=== PATIENT | female | born 1975 | race Caucasian/White ===

== ENCOUNTER 2016-09-15 10:07 | Outpatient (CLI) ==
[2014-03-02 09:28] VITALS: BMI 35.9
[2016-09-15 10:51] LABS: PROTHROMBIN TIME 20.1 SEC (9.3-11.0)
== END 2016-09-15 10:08 | disposition home or self-care (01) ==
LOC: LAB 10:07
PROVIDERS: ATTEND Nurse Practitioner Family
DX: Z51.81 Encounter for therapeutic drug level monitoring (principal); Z79.01 Long term (current) use of anticoagulants
CPT/HCPCS: 36415; 85610

== ENCOUNTER 2016-09-19 09:24 | Outpatient (CLI) ==
[2014-03-02 09:28] VITALS: BMI 35.9
[2016-09-19 09:55] LABS: PROTHROMBIN TIME 24.5 SEC (9.3-11.0)
== END 2016-09-19 09:25 | disposition home or self-care (01) ==
LOC: LAB 09:24
PROVIDERS: ATTEND Psychiatry & Neurology Neurology
DX: Z51.81 Encounter for therapeutic drug level monitoring (principal); Z79.01 Long term (current) use of anticoagulants; I67.6 Nonpyogenic thrombosis of intracranial venous system
CPT/HCPCS: 36415; 85610

== ENCOUNTER 2016-09-22 10:28 | Outpatient (CLI) ==
[2014-03-02 09:28] VITALS: BMI 35.9
[2016-09-22 10:54] LABS: PROTHROMBIN TIME 35.1 SEC (9.3-11.0)
== END 2016-09-22 10:29 | disposition home or self-care (01) ==
LOC: LAB 10:28
PROVIDERS: ATTEND Psychiatry & Neurology Neurology
DX: Z51.81 Encounter for therapeutic drug level monitoring (principal); Z79.01 Long term (current) use of anticoagulants; I67.6 Nonpyogenic thrombosis of intracranial venous system
CPT/HCPCS: 36415; 85610

== ENCOUNTER 2016-09-26 09:52 | Outpatient (CLI) ==
[2014-03-02 09:28] VITALS: BMI 35.9
[2016-09-26 10:14] LABS: PROTHROMBIN TIME 21.7 SEC (9.3-11.0)
== END 2016-09-26 09:53 | disposition home or self-care (01) ==
LOC: LAB 09:52
PROVIDERS: ATTEND Psychiatry & Neurology Neurology
DX: Z51.81 Encounter for therapeutic drug level monitoring (principal); Z79.01 Long term (current) use of anticoagulants; I67.6 Nonpyogenic thrombosis of intracranial venous system
CPT/HCPCS: 36415; 85610

== ENCOUNTER 2016-09-29 09:31 | Outpatient (CLI) ==
[2014-03-02 09:28] VITALS: BMI 35.9
[2016-09-29 10:25] LABS: PROTHROMBIN TIME 20.3 SEC (9.3-11.0)
== END 2016-09-29 09:32 | disposition home or self-care (01) ==
LOC: LAB 09:31
PROVIDERS: ATTEND Psychiatry & Neurology Neurology
DX: Z51.81 Encounter for therapeutic drug level monitoring (principal); Z79.01 Long term (current) use of anticoagulants; I67.6 Nonpyogenic thrombosis of intracranial venous system
CPT/HCPCS: 36415; 85610

== ENCOUNTER 2016-10-03 10:40 | Outpatient (CLI) ==
[2014-03-02 09:28] VITALS: BMI 35.9
[2016-10-03 11:05] LABS: PROTHROMBIN TIME 24.7 SEC (9.3-11.0)
== END 2016-10-03 10:41 | disposition home or self-care (01) ==
LOC: LAB 10:40
PROVIDERS: ATTEND Psychiatry & Neurology Neurology
DX: Z51.81 Encounter for therapeutic drug level monitoring (principal); Z79.01 Long term (current) use of anticoagulants; I67.6 Nonpyogenic thrombosis of intracranial venous system
CPT/HCPCS: 36415; 85610

== ENCOUNTER 2016-10-06 10:11 | Outpatient (CLI) ==
[2014-03-02 09:28] VITALS: BMI 35.9
[2016-10-06 10:38] LABS: PROTHROMBIN TIME 20.8 SEC (9.3-11.0)
== END 2016-10-06 10:12 | disposition home or self-care (01) ==
LOC: LAB 10:11
PROVIDERS: ATTEND Psychiatry & Neurology Neurology
DX: Z51.81 Encounter for therapeutic drug level monitoring (principal); Z79.01 Long term (current) use of anticoagulants; I67.6 Nonpyogenic thrombosis of intracranial venous system
CPT/HCPCS: 36415; 85610

== ENCOUNTER 2016-10-12 10:06 | Outpatient (CLI) ==
[2014-03-02 09:28] VITALS: BMI 35.9
[2016-10-12 10:44] LABS: PROTHROMBIN TIME 22.8 SEC (9.3-11.0)
== END 2016-10-12 10:07 | disposition home or self-care (01) ==
LOC: LAB 10:06
PROVIDERS: ATTEND Nurse Practitioner Family
DX: Z51.81 Encounter for therapeutic drug level monitoring (principal); Z79.01 Long term (current) use of anticoagulants
CPT/HCPCS: 36415; 85610

== ENCOUNTER 2016-10-19 09:40 | Outpatient (CLI) ==
[2014-03-02 09:28] VITALS: BMI 35.9
[2016-10-19 10:37] LABS: PROTHROMBIN TIME 17.8 SEC (9.3-11.0)
== END 2016-10-19 09:41 | disposition home or self-care (01) ==
LOC: LAB 09:40
PROVIDERS: ATTEND Nurse Practitioner Family
DX: Z51.81 Encounter for therapeutic drug level monitoring (principal); Z79.01 Long term (current) use of anticoagulants; I67.6 Nonpyogenic thrombosis of intracranial venous system
CPT/HCPCS: 36415; 85610

== ENCOUNTER 2016-10-26 10:12 | Outpatient (CLI) ==
[2014-03-02 09:28] VITALS: BMI 35.9
[2016-10-26 10:45] LABS: PROTHROMBIN TIME 20.1 SEC (9.3-11.0)
== END 2016-10-26 10:13 | disposition home or self-care (01) ==
LOC: LAB 10:12
PROVIDERS: ATTEND Nurse Practitioner Family
DX: Z51.81 Encounter for therapeutic drug level monitoring (principal); Z79.01 Long term (current) use of anticoagulants
CPT/HCPCS: 36415; 85610

== ENCOUNTER 2016-11-02 09:45 | Outpatient (CLI) ==
[2014-03-02 09:28] VITALS: BMI 35.9
[2016-11-02 10:33] LABS: PROTHROMBIN TIME 20.7 SEC (9.3-11.0)
== END 2016-11-02 09:46 | disposition home or self-care (01) ==
LOC: LAB 09:45
PROVIDERS: ATTEND Nurse Practitioner Family
DX: Z51.81 Encounter for therapeutic drug level monitoring (principal); Z79.01 Long term (current) use of anticoagulants
CPT/HCPCS: 36415; 85610

== ENCOUNTER 2016-11-16 09:58 | Outpatient (CLI) ==
[2014-03-02 09:28] VITALS: BMI 35.9
[2016-11-16 10:23] LABS: PROTHROMBIN TIME 23.1 SEC (9.3-11.0)
== END 2016-11-16 09:59 | disposition home or self-care (01) ==
LOC: LAB 09:58
PROVIDERS: ATTEND Nurse Practitioner Family
DX: Z51.81 Encounter for therapeutic drug level monitoring (principal); Z79.01 Long term (current) use of anticoagulants
CPT/HCPCS: 36415; 85610

== ENCOUNTER 2016-11-30 09:43 | Outpatient (CLI) ==
[2014-03-02 09:28] VITALS: BMI 35.9
[2016-11-30 10:24] LABS: PROTHROMBIN TIME 16.8 SEC (9.3-11.0)
== END 2016-11-30 09:44 | disposition home or self-care (01) ==
LOC: LAB 09:43
PROVIDERS: ATTEND Nurse Practitioner Family
DX: Z51.81 Encounter for therapeutic drug level monitoring (principal); Z79.01 Long term (current) use of anticoagulants
CPT/HCPCS: 36415; 85610

== ENCOUNTER 2016-12-07 10:23 | Outpatient (CLI) ==
[2014-03-02 09:28] VITALS: BMI 35.9
[2016-12-07 10:46] LABS: PROTHROMBIN TIME 25.4 SEC (9.3-11.0)
== END 2016-12-07 10:24 | disposition home or self-care (01) ==
LOC: LAB 10:23
PROVIDERS: ATTEND Nurse Practitioner Family
DX: Z51.81 Encounter for therapeutic drug level monitoring (principal); Z79.01 Long term (current) use of anticoagulants
CPT/HCPCS: 36415; 85610

== ENCOUNTER 2016-12-22 09:42 | Outpatient (CLI) ==
[2014-03-02 09:28] VITALS: BMI 35.9
[2016-12-22 10:12] LABS: PROTHROMBIN TIME 27.5 SEC (9.3-11.0)
== END 2016-12-22 09:43 | disposition home or self-care (01) ==
LOC: LAB 09:42
PROVIDERS: ATTEND Nurse Practitioner Family
DX: Z51.81 Encounter for therapeutic drug level monitoring (principal); Z79.01 Long term (current) use of anticoagulants
CPT/HCPCS: 36415; 85610

== ENCOUNTER 2017-01-18 09:57 | Outpatient (CLI) ==
[2014-03-02 09:28] VITALS: BMI 35.9
[2017-01-18 10:59] LABS: PROTHROMBIN TIME 17.8 SEC (9.3-11.0)
== END 2017-01-18 09:58 | disposition home or self-care (01) ==
LOC: LAB 09:57
PROVIDERS: ATTEND Nurse Practitioner Family
DX: Z51.81 Encounter for therapeutic drug level monitoring (principal); Z79.01 Long term (current) use of anticoagulants; I67.6 Nonpyogenic thrombosis of intracranial venous system
CPT/HCPCS: 36415; 85610

== ENCOUNTER 2017-02-01 09:16 | Outpatient (CLI) ==
[2014-03-02 09:28] VITALS: BMI 35.9
== END 2017-02-01 09:17 | disposition home or self-care (01) ==
LOC: LAB 09:16
PROVIDERS: ATTEND Nurse Practitioner Family
DX: Z51.81 Encounter for therapeutic drug level monitoring (principal); Z79.01 Long term (current) use of anticoagulants; I67.6 Nonpyogenic thrombosis of intracranial venous system
CPT/HCPCS: 36415; 85610

== ENCOUNTER 2017-03-15 09:10 | Outpatient (CLI) ==
[2014-03-02 09:28] VITALS: BMI 35.9
[2017-03-15 11:19] LABS: PROTHROMBIN TIME 14.3 SEC (9.3-11.0)
== END 2017-03-15 09:11 | disposition home or self-care (01) ==
LOC: LAB 09:10
PROVIDERS: ATTEND Psychiatry & Neurology Neurology
DX: Z51.81 Encounter for therapeutic drug level monitoring (principal); Z79.01 Long term (current) use of anticoagulants; I67.6 Nonpyogenic thrombosis of intracranial venous system
CPT/HCPCS: 36415; 85610

== ENCOUNTER 2017-03-21 10:43 | Outpatient (CLI) ==
[2014-03-02 09:28] VITALS: BMI 35.9
[2017-03-21 11:18] LABS: PROTHROMBIN TIME 26.9 SEC (9.3-11.0)
== END 2017-03-21 10:44 | disposition home or self-care (01) ==
LOC: LAB 10:43
PROVIDERS: ATTEND Psychiatry & Neurology Neurology
DX: Z51.81 Encounter for therapeutic drug level monitoring (principal); Z79.01 Long term (current) use of anticoagulants; I67.6 Nonpyogenic thrombosis of intracranial venous system
CPT/HCPCS: 36415; 85610

== ENCOUNTER 2017-04-04 11:23 | Outpatient (CLI) ==
[2014-03-02 09:28] VITALS: BMI 35.9
[2017-04-04 12:27] LABS: PROTHROMBIN TIME 24.8 SEC (9.3-11.0)
== END 2017-04-04 11:24 | disposition home or self-care (01) ==
LOC: LAB 11:23
PROVIDERS: ATTEND Psychiatry & Neurology Neurology
DX: Z51.81 Encounter for therapeutic drug level monitoring (principal); Z79.01 Long term (current) use of anticoagulants; I67.6 Nonpyogenic thrombosis of intracranial venous system
CPT/HCPCS: 36415; 85610

== ENCOUNTER 2017-05-03 08:30 | Outpatient (CLI) ==
[2014-03-02 09:28] VITALS: BMI 35.9
[2017-05-03 08:59] LABS: PROTHROMBIN TIME 27.8 SEC (9.3-11.0)
== END 2017-05-03 08:31 | disposition home or self-care (01) ==
LOC: LAB 08:30
PROVIDERS: ATTEND Psychiatry & Neurology Neurology
DX: Z51.81 Encounter for therapeutic drug level monitoring (principal); Z79.01 Long term (current) use of anticoagulants; I67.6 Nonpyogenic thrombosis of intracranial venous system
CPT/HCPCS: 36415; 85610

== ENCOUNTER 2017-06-13 12:52 | Outpatient (CLI) ==
[2014-03-02 09:28] VITALS: BMI 35.9
== END 2017-06-13 12:53 | disposition home or self-care (01) ==
LOC: LAB 12:52
PROVIDERS: ATTEND Psychiatry & Neurology Neurology
DX: Z51.81 Encounter for therapeutic drug level monitoring (principal); Z79.01 Long term (current) use of anticoagulants; I67.6 Nonpyogenic thrombosis of intracranial venous system
CPT/HCPCS: 36415; 85610

== ENCOUNTER 2017-06-19 16:25 | Outpatient (CLI) ==
[2014-03-02 09:28] VITALS: BMI 35.9
== END 2017-06-19 16:26 | disposition home or self-care (01) ==
LOC: LAB 16:25
PROVIDERS: ATTEND Nurse Practitioner Family
DX: J02.9 Acute pharyngitis, unspecified (principal)
CPT/HCPCS: 87651

== ENCOUNTER 2017-07-11 11:38 | Outpatient (CLI) ==
[2014-03-02 09:28] VITALS: BMI 35.9
== END 2017-07-11 11:39 | disposition home or self-care (01) ==
LOC: LAB 11:38
PROVIDERS: ATTEND Psychiatry & Neurology Neurology
DX: R51 Headache (principal)
CPT/HCPCS: 36415; 80053; 85025; 85610

== ENCOUNTER 2017-08-01 11:59 | Outpatient (CLI) ==
[2014-03-02 09:28] VITALS: BMI 35.9
--- NOTE | 2017-08-01 13:08 | DI ---
EXAM: Five views of the lumbar spine HISTORY: Lumbar radiculopathy TECHNIQUE: AP, oblique and lateral and coned-down lateral views of the lumbar spine were obtained. FINDINGS: The alignment is normal. There is no evidence of compression fracture. There is no pars defect. There is mild degenerative disc disease and lumbar spondylosis seen at L3-L4 and at L1-L2. The intervertebral discs demonstrate normal height. IMPRESSION: There is no spondylolisthesis. Mild degenerative disc disease seen within the lumbar spine as described above.
== END 2017-08-01 12:00 | disposition home or self-care (01) ==
LOC: RAD 11:59
PROVIDERS: ATTEND Nurse Practitioner Family
DX: M54.17 Radiculopathy, lumbosacral region (principal); M53.3 Sacrococcygeal disorders, not elsewhere classified

== ENCOUNTER 2017-08-15 11:00 | Outpatient (RCR) ==
[2014-03-02 09:28] VITALS: BMI 35.9
--- NOTE | 2017-08-09 13:08 | RS.OPPTEV2 ---
Date of Note: 08/08/17 Visit #: 1 Date of Evaluation: 08/08/17 Payer Source: Insurance Treatment Diagnosis: Low back pain History of Condition/Mechanism of Injury:: Patient reports having this back pain for a few months. Denies any injury. Prior Level of Function.....Patient was independent with: ADL's, Self Care, Work /Vocation, Caregiving, Ambulation/Mobility, Community Integration/Access Functional Limitations: Sleep, ADL's, Reaching, Pushing, Pulling, Lifting, Carrying, Sitting, Standing, Bending, Squatting, Ambulation, Community Access/ Integration Current Subjective/complaints:: Patient reports left low back pain. States at times the pain goes into the left buttock area. States sitting or standing for very long bothers her. Reports bending bothers her more than anything. She does not sleep well due to her back and her bladder. She currently has kidney stones in both kidneys that are too large to pass. She is unable to take anything for pain other than Tylenol. States she usually sleeps in a position that is partly sidelying and prone. She has been on Warfarin since having her brain surgery and states she has gained 50 lbs. She is very limited on what she can eat due to being on Warfarin. She has been off work for approximately three weeks. She works at [employer], which requires frequent bending, lifting, reaching. States her back feels a little bit better since not being at work, but it still bothers her. Medical History Surgical History Comments:: Brain surgery for clot removal one year ago. Smoking Status: Never smoker Diagnostic Testing/Imaging:: Xrays of lumbar spine on 08/01/17 reveal: Impression: "There is no spondylolisthesis.". Findings also note mild degenerative disc disease and lumbar spondylosis at L3-L4 and L1-L2. Intervertebral discs demonstrate normal height. Hx Home Medications: Warfarin, Flexeril PRN, Tylenol PRN, Steriod pack (just finished) Patient's Goals: Her goal is to get relief of low back pain. Pain Assessment - Pain Description Pain Location: Left low back Current Pain Intensity: 6/10 Worst Pain Intensity: 10/10 Functional Outcome Measure Oswestry LBP: 52 - G Codes & Severity Modifier G Codes & Modifier: NA Source of G Code score: NA Observation - Observation Posture: Forward Head, Rounded Shoulders Gait - Gait Pattern General Gait Pattern Observation: No Deviations/Normal - ROM Lumbar Flexion: Hand reach to patellae (with decreased lumbar mobility.) Sidebending to Left: Reach to Lateral Joint Line Sidebending to Right: Reach to Lateral Joint Line Comments: Reports increased pain into left buttock region with lumbar flexion. Extension is uncomfortable, but discomfort is just at lumbar spine. Bilateral LE ROM is WFL's. - Strength Trunk Rotation: 4+ Good + Comments: 5/5 throughout bilateral LE's. - Special Tests SARAVANAN Test: Negative Left, Negative Right SLR Test: Negative Right, Positive Left (pain radiates to left knee) Seated Dural Stretch Test: Negative Right, Positive Left SI Joint Compression: Negative Palpation Comments:: Patient reports tenderness along the left lumbosacral region, over the left SI joint, and over the gluteus medius, hannah, and piriformis. Minimal to moderate muscle guarding at the left lumbar paraspinals. Sensation - Sensation Right Lower Extremity: Intact/Normal Left Lower Extremity: Intact/Normal Additional Comments: Additional Comments: SLR bilaterally to 50 degrees in supine. - Treatment Modality: Ultrasound Parameters/Method Applied: 1.5 W/cm2 continuous X 10 mins to left lumbosacral region. Patient Position: Left Sidelying Interventions - Exercise/Activities/Manual Therapy Exercises/Activities: None given today. Manual Therapy: NA - Charges Timed Code Treatment Minutes: 10 Total Treatment Time: 55 mins Procedures billed for this date of service:: Geraldo Carl, EVALUATION COMPLEXITY LEVEL EVALUATION COMPLEXITY LEVEL: HISTORY: Medium (HX brain surgery, gain of 50 lbs ) , EXAM OF BODY SYSTEMS: Medium, CLINICAL PRESENTATION: Low, CLINICAL DECISION MAKING: Low Assessment Assessment: Patient presents to therapy with a diagnosis of Lumbar degenerative disc disease. She reports primarily left low back pain, with pain radiating into the left buttock. During the evaluation, she demonstrates symptoms of lumbar disc involvement, as Supine and seated SLR on the left reproduced pain. Lumbar flexion also caused reproduction of pain, whereas extension did not. She exhibits tenderness and muscle guarding along the left lumbosacral region. She should benefit from modalities and exercises to reduce tenderness, muscle guarding, and decrease her pain. Patient Education: Education of diagnosis, Body/Joint mechanics, Activity Modification, Education of Plan of Care Rehab Potential: Good Short Term Goals Goal #1: Patient independent and compliant with HEP. Goal to be met by: 08/19/17 Goal #2: Left radiating pain localized to lumbar spine. Goal to be met by: 08/19/17 Goal #3: Tenderness at left lumbosacral region decreased to minimal. Goal to be met by: 08/19/17 Intermediate Goals Goal #1: Pt knows HEP and to continue ex's to maintain level of function at D/C. Goal to be met by: 09/08/17 Goal #2: Score on Oswestry LBP scale improved to 28. Goal to be met by: 09/08/17 Goal #3: Pt able to perform all daily activities with minimal low back pain. Goal to be met by: 09/08/17 Goal #4: Pt to demo. good understanding of back safety and proper body mechanics. Goal to be met by: 09/08/17 Plan - Treatment to be Provided Procedures: Therapeutic Exercises, Therapeutic Activity, Patient Education ( Back safety/body mechanics) Modalities: Electrical Stimulation, Ultrasound/Phonophoresis, Cryotherapy, Hot Packs - Treatment Plan Frequency: 3 X week Duration: 3 weeks ORDER # VISITS AND/OR THROUGH DATE: 09/08/17 - Treatment Code (1) Low back pain Code(s): M54.5 - LOW BACK PAIN Qualifiers: Chronicity: acute Back pain laterality: left Sciatica presence: unspecified whether sciatica present Qualified Code(s): M54.5 - Low back pain (2) Lumbar degenerative disc disease Code(s): M51.36 - OTHER INTERVERTEBRAL DISC DEGENERATION, LUMBAR REGION Comments: M51.36
--- NOTE | 2017-08-10 15:18 | RS.OPPTDN ---
Subjective Date of Note: 08/10/17 Visit #: 2 Date of Evaluation: 08/08/17 Payer Source: Insurance Treatment Diagnosis: Low back pain Current Subjective/complaints:: Patient reports pain in the lumbar region is not as bad today. States she has been off of work and has been resting. Pain Assessment - Pain Description Pain Location: Lowback and left gluteal region Current Pain Intensity: 5/10 - Treatment Modality: Electrical Stim Unattended Parameters/Method Applied: [id number] HVGC to 145p.v. with 4 large pads cross current to the lumbar paraspinals and S-I region with HP prior to EX. Patient Position: Supine - Heat/Cryotherapy Treatment: Hot Pack (with Estim ) Interventions - Exercise/Activities/Manual Therapy Exercises/Activities: Asssited stretching of bilateral HS, pirifromis, and SKTC. Prone for ELIZABETH, modified press-ups, alt hip extension, and upper body lifts with scap retraction. Patient assisted back to supine for isometric hip extension 2s/5reps each side. Reveiwed body mechanics with daily activities and with getting in/out of car and truck. Total minutes of Exercise: 15mins Manual Therapy: NA HOME EXERCISE PROGRAM: ELIZABETH, mod press-ups, upper body lifts, and hip extension, all in prone. Isometric hip extensions. - Charges Timed Code Treatment Minutes: 15mins Total Treatment Time: 40mins Procedures billed for this date of service:: HP, Estim unattended, EX Assessment: Patient attentive to patient education and seems motivated to work on HEP. Patient Education: Education of diagnosis, Body/Joint mechanics, Home Exercise Program, Home Safety, Activity Modification Patient demonstrates compliance with HEP?: Yes Short Term Goals Goal #1: Patient independent and compliant with HEP. Goal to be met by: 08/19/17 Progress towards Goal:: Progressing Goal #2: Left radiating pain localized to lumbar spine. Goal to be met by: 08/19/17 Goal #3: Tenderness at left lumbosacral region decreased to minimal. Goal to be met by: 08/19/17 Custodial Goals Goal #1: Pt knows HEP and to continue ex's to maintain level of function at D/C. Goal to be met by: 09/08/17 Goal #2: Score on Oswestry LBP scale improved to 28. Goal to be met by: 09/08/17 Goal #3: Pt able to perform all daily activities with minimal low back pain. Goal to be met by: 09/08/17 Goal #4: Pt to demo. good understanding of back safety and proper body mechanics. Goal to be met by: 09/08/17 Plan PLAN OF CARE EXPIRES ON:: 09/08/17 ORDER # VISITS AND/OR THROUGH DATE: 09/08/17 PLAN: Continue modalities and progress exercise to reduce pain and increase functional activity level.
--- NOTE | 2017-08-14 13:27 | RS.CXNS ---
Date of scheduled appointment: 08/14/17 Type: Rescheduled (Patient calls to cancel todays appointment and reschedules for tomorrow.)
--- NOTE | 2017-08-15 12:10 | RS.OPPTDN ---
Subjective Date of Note: 08/15/17 Visit #: 3 Date of Evaluation: 08/08/17 Payer Source: Insurance Treatment Diagnosis: Low back pain Current Subjective/complaints:: Patient reports last session with Estim helped reduce pain. States she is working on HEP. Pain Assessment - Pain Description Pain Location: Lowback and S-I region Current Pain Intensity: mild Other Comments regarding Pain:: Reports her pain is mild but she just got up. - Treatment Modality: Electrical Stim Unattended Parameters/Method Applied: [id number] HVGC to 155p.v. with 4 large pads cross current with HP prior to EX. Patient Position: Supine - Heat/Cryotherapy Treatment: Hot Pack (with Estim ) Interventions - Exercise/Activities/Manual Therapy Exercises/Activities: Asssited stretching of bilateral HS, pirifromis, and SKTC. Isometric hip flexion. Pelvic tilts and bridging. Ended with additional hamstring stretching. Patient give copy of new exercises. Discussed extension exercises with HEP. Total minutes of Exercise: 15mins Manual Therapy: NA HOME EXERCISE PROGRAM: ELIZABETH, mod press-ups, upper body lifts, and hip extension, all in prone. Isometric hip extensions. - Charges Timed Code Treatment Minutes: 15mins Total Treatment Time: 40mins Procedures billed for this date of service:: HP, Estim unattended, EX Assessment: Patient reponding to treatment with reports of pain reduction. She seems motivated to progress HEP. Patient Education: Home Exercise Program Patient demonstrates compliance with HEP?: Yes Short Term Goals Goal #1: Patient independent and compliant with HEP. Goal to be met by: 08/19/17 Progress towards Goal:: Progressing Goal #2: Left radiating pain localized to lumbar spine. Goal to be met by: 08/19/17 Progress towards Goal:: Progressing Goal #3: Tenderness at left lumbosacral region decreased to minimal. Goal to be met by: 08/19/17 Group Home Goals Goal #1: Pt knows HEP and to continue ex's to maintain level of function at D/C. Goal to be met by: 09/08/17 Goal #2: Score on Oswestry LBP scale improved to 28. Goal to be met by: 09/08/17 Goal #3: Pt able to perform all daily activities with minimal low back pain. Goal to be met by: 09/08/17 Goal #4: Pt to demo. good understanding of back safety and proper body mechanics. Goal to be met by: 09/08/17 Progress towards goal: Progressing Plan PLAN OF CARE EXPIRES ON:: 09/08/17 ORDER # VISITS AND/OR THROUGH DATE: 09/08/17 PLAN: Continue modalities and progress exercise to reduce pain and increase functional activity level.
--- NOTE | 2017-08-18 14:27 | RS.CXNS ---
Date of scheduled appointment: 08/18/17 Type: Cancel
== END 2017-08-19 ==
PROVIDERS: ATTEND Nurse Practitioner Family
DX: M51.36 Other intervertebral disc degeneration, lumbar region (principal)

== ENCOUNTER 2017-08-21 10:14 | Outpatient (CLI) ==
[2017-08-01 12:02] VITALS: BMI 35.9
== END 2017-08-21 10:15 | disposition home or self-care (01) ==
LOC: LAB 10:14
PROVIDERS: ATTEND Psychiatry & Neurology Neurology
DX: Z51.81 Encounter for therapeutic drug level monitoring (principal); Z79.01 Long term (current) use of anticoagulants; I67.6 Nonpyogenic thrombosis of intracranial venous system
CPT/HCPCS: 36415; 85610

== ENCOUNTER 2017-08-31 14:00 | Outpatient (RCR) ==
[2017-08-01 12:02] VITALS: BMI 35.9
--- NOTE | 2017-08-21 15:19 | RS.OPPTDN ---
Subjective Date of Note: 08/21/17 Visit #: 4 Date of Evaluation: 08/08/17 Payer Source: Insurance Treatment Diagnosis: Low back pain Current Subjective/complaints:: Patient says treatment seems to be helping. She says pain is mostly with prolonged sitting and to the L low back into the L SI joint. She c/o "catch." - Treatment Modality: Electrical Stim Unattended Parameters/Method Applied: L lumbar paraspinals and SI joint @ 200 pk volts and R lumbar paraspinals @ 170 pk volts x 20 mins. Patient Position: Supine - Heat/Cryotherapy Treatment: Hot Pack (mid to low back in supine) Interventions - Exercise/Activities/Manual Therapy Exercises/Activities: Asssited stretching of bilateral HS, pirifromis, and SKTC. Isometric hip flexion. Pelvic tilts and bridging. Isometric hip adduction/ abd x 10. Ended with additional hamstring stretching. Total minutes of Exercise: 20 Manual Therapy: NA HOME EXERCISE PROGRAM: ELIZABETH, mod press-ups, upper body lifts, and hip extension, all in prone. Isometric hip extensions. - Charges Timed Code Treatment Minutes: 20 Total Treatment Time: 40 Procedures billed for this date of service:: hp, estim (un), ex Assessment: Patient appears to be responding to estim and therex, but still has hamstring inflexibility and pelvic weakness. She should continue to benefit from further modalties and trunk strength progression. Patient Education: Education of diagnosis, Home Exercise Program, Education of Plan of Care Patient demonstrates compliance with HEP?: Yes Short Term Goals Goal #1: Patient independent and compliant with HEP. Goal to be met by: 08/19/17 Progress towards Goal:: Progressing Goal #2: Left radiating pain localized to lumbar spine. Goal to be met by: 08/19/17 Progress towards Goal:: Progressing Goal #3: Tenderness at left lumbosacral region decreased to minimal. 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 Goal to be met by: 09/08/17 Goal #2: Score on Oswestry LBP scale improved to 28. Goal to be met by: 09/08/17 Goal #3: Pt able to perform all daily activities with minimal low back pain. Goal to be met by: 09/08/17 Goal #4: Pt to demo. good understanding of back safety and proper body mechanics. Goal to be met by: 09/08/17 Progress towards goal: Progressing Plan PLAN OF CARE EXPIRES ON:: 09/08/17 ORDER # VISITS AND/OR THROUGH DATE: 09/08/17 PLAN: Patient to continue for modalties and therex
--- NOTE | 2017-08-25 15:29 | RS.OPPTDN ---
Subjective Date of Note: 08/25/17 Visit #: 5 Date of Evaluation: 08/08/17 Payer Source: Insurance Treatment Diagnosis: Low back pain Current Subjective/complaints:: Reports the lumbar pain is on the L and R today ,but the L side generally is elevated more.she currently has no radiating pain into the legs.She has been lifting frequently at work today. Pain Assessment - Pain Description Pain Description: Aching Current Pain Intensity: 5-6 Worst Pain Intensity: 8 about one hour go. - Treatment Modality: Electrical Stim Unattended Parameters/Method Applied: 20 mins. high volt to lumbar,channel 1 and 2 @ 170 pv. Patient Position: Supine - Heat/Cryotherapy Treatment: Hot Pack (concurrent with e-stim) Interventions - Exercise/Activities/Manual Therapy Exercises/Activities: Assisted stretching of bilateral HS, piriformis, and SKTC. Instructed in pelvic tilts,HEP review. Total minutes of Exercise: 15 Manual Therapy: NA Total minutes of Manual Therapy: 0 HOME EXERCISE PROGRAM: ELIZABETH, mod press-ups, upper body lifts, and hip extension, all in prone. Isometric hip extensions. - Charges Timed Code Treatment Minutes: 35 Total Treatment Time: 55 Procedures billed for this date of service:: hp,e-stim,ex 1 Assessment: Patient has improved hamstring extensibility bilaterally today.She reports stretch dsicomfort only with piriformis stretches today.She has good return demo of pelvic tilts ,and these do not elicit any back pain. Patient Education: Body/Joint mechanics, Home Exercise Program Patient demonstrates compliance with HEP?: Yes Short Term Goals Goal #1: Patient independent and compliant with HEP. Goal to be met by: 08/19/17 Progress towards Goal:: Progressing Goal #2: Left radiating pain localized to lumbar spine. Goal to be met by: 08/19/17 Progress towards Goal:: Progressing Goal #3: Tenderness at left lumbosacral region decreased to minimal. Goal to be met by: 08/19/17 Progress towards Goal:: Progressing Assisted Goals Goal #1: Pt knows HEP and to continue ex's to maintain level of function at D/C. Goal to be met by: 09/08/17 Progress towards goal: Progressing Goal #2: Score on Oswestry LBP scale improved to 28. Goal to be met by: 09/08/17 Goal #3: Pt able to perform all daily activities with minimal low back pain. Goal to be met by: 09/08/17 Goal #4: Pt to demo. good understanding of back safety and proper body mechanics. Goal to be met by: 09/08/17 Progress towards goal: Progressing Plan PLAN OF CARE EXPIRES ON:: 09/08/17 ORDER # VISITS AND/OR THROUGH DATE: 09/08/17 PLAN: Continue skilled PT to educate patient for low back care,improve flexibility and increase core and LE strength .
--- NOTE | 2017-08-28 13:29 | RS.OPPTDN ---
Subjective Date of Note: 08/28/17 Visit #: 6 Date of Evaluation: 08/08/17 Payer Source: Insurance Treatment Diagnosis: Low back pain Current Subjective/complaints:: Patient says she had a bad weekend, but not with pain. She says she is sore today, but only at the L low back and SI region. Rates /. - Treatment Modality: Electrical Stim Unattended Parameters/Method Applied: hivolt 2 large pads at the L lumbar paraspinals and SI joint @ 165 pk volts and R @ 145 pk volts x 20 mins Patient Position: Supine - Heat/Cryotherapy Treatment: Hot Pack (mid to low back in supine) Interventions - Exercise/Activities/Manual Therapy Exercises/Activities: Assisted stretching of bilateral HS, piriformis, and SKTC. Patient performs pillow squeezes, isometric hip abd/flexion x 10. Total minutes of Exercise: 16 Manual Therapy: NA HOME EXERCISE PROGRAM: ELIZABETH, mod press-ups, upper body lifts, and hip extension, all in prone. Isometric hip extensions. - Charges Timed Code Treatment Minutes: 16 Total Treatment Time: 36 Procedures billed for this date of service:: hp, estim (un), ex Assessment: Patient presenting with more "soreness" than pain today to the L lumbar paraspinals mostly and extends to the L SI joint. She is able to demo increased HS and piriformis extensibility and areli all isometric exercises well. Patient Education: Body/Joint mechanics, Home Exercise Program, Education of Plan of Care Patient demonstrates compliance with HEP?: Yes Short Term Goals Goal #1: Patient independent and compliant with HEP. Goal to be met by: 08/19/17 Progress towards Goal:: Progressing Goal #2: Left radiating pain localized to lumbar spine. Goal to be met by: 08/19/17 Progress towards Goal:: Progressing Goal #3: Tenderness at left lumbosacral region decreased to minimal. 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 Goal to be met by: 09/08/17 Progress towards goal: Progressing Goal #2: Score on Oswestry LBP scale improved to 28. Goal to be met by: 09/08/17 Goal #3: Pt able to perform all daily activities with minimal low back pain. Goal to be met by: 09/08/17 Goal #4: Pt to demo. good understanding of back safety and proper body mechanics. Goal to be met by: 09/08/17 Progress towards goal: Progressing Plan PLAN OF CARE EXPIRES ON:: 09/08/17 ORDER # VISITS AND/OR THROUGH DATE: 09/08/17 PLAN: Patient to continue for modalties and therex x 2 more weeks per order.
--- NOTE | 2017-08-30 14:57 | RS.CXNS ---
Date of scheduled appointment: 08/30/17 Type: No Show
--- NOTE | 2017-09-05 11:20 | RS.OPPTDN ---
Subjective Date of Note: 08/31/17 Visit #: 7 Date of Evaluation: 08/08/17 Payer Source: Insurance Treatment Diagnosis: Low back pain Current Subjective/complaints:: Patient says her back pain is elevated slightly today, but overall is improving greatly. She continues to perform HEP. - Treatment Modality: Electrical Stim Unattended Parameters/Method Applied: hivolt 4 large pads @ 185 pk volts x 20 mins to the bilateral lumbar paraspinals Patient Position: Supine - Heat/Cryotherapy Treatment: Hot Pack (mid to low back in supine) Interventions - Exercise/Activities/Manual Therapy Exercises/Activities: Assisted stretching of bilateral HS, piriformis, fig 4, and SKTC. Lower trunk rotation stretch x 3. Patient performs pillow squeezes, isometric hip abd/flexion x 10. SLR and bridging x 10. Total minutes of Exercise: 17 Manual Therapy: NA HOME EXERCISE PROGRAM: ELIZABETH, mod press-ups, upper body lifts, and hip extension, all in prone. Isometric hip extensions. - Charges Timed Code Treatment Minutes: 17 Total Treatment Time: 37 Procedures billed for this date of service:: hp, estim (un), ex Assessment: Patient maintaining low pain level to her low back and mostly isolated to the L low back at this point. Patient Education: Body/Joint mechanics, Home Exercise Program, Education of Plan of Care Patient demonstrates compliance with HEP?: Yes Short Term Goals Goal #1: Patient independent and compliant with HEP. Goal to be met by: 08/19/17 Progress towards Goal:: Progressing Goal #2: Left radiating pain localized to lumbar spine. Goal to be met by: 08/19/17 Progress towards Goal:: Progressing Goal #3: Tenderness at left lumbosacral region decreased to minimal. Goal to be met by: 08/19/17 Progress towards Goal:: Progressing Usp Goals Goal #1: Pt knows HEP and to continue ex's to maintain level of function at D/C. Goal to be met by: 09/08/17 Progress towards goal: Progressing Goal #2: Score on Oswestry LBP scale improved to 28. Goal to be met by: 09/08/17 Comments: Reassess next session Goal #3: Pt able to perform all daily activities with minimal low back pain. Goal to be met by: 09/08/17 Goal #4: Pt to demo. good understanding of back safety and proper body mechanics. Goal to be met by: 09/08/17 Progress towards goal: Progressing Plan PLAN OF CARE EXPIRES ON:: 09/08/17 ORDER # VISITS AND/OR THROUGH DATE: 09/08/17 PLAN: Patient continue next week then discharge
--- NOTE | 2017-09-05 11:20 | RS.CXNS ---
Date of scheduled appointment: 09/05/17 Type: No Show
--- NOTE | 2017-09-07 11:31 | RS.CXNS ---
Date of scheduled appointment: 09/07/17 Type: Cancel
== END 2017-09-18 23:59 ==
PROVIDERS: ATTEND Nurse Practitioner Family
DX: M51.36 Other intervertebral disc degeneration, lumbar region (principal); M54.5 Low back pain

== ENCOUNTER 2017-08-31 15:07 | Outpatient (CLI) ==
[2017-08-01 12:02] VITALS: BMI 35.9
== END 2017-08-31 15:08 | disposition home or self-care (01) ==
LOC: LAB 15:07
PROVIDERS: ATTEND Psychiatry & Neurology Neurology
DX: Z51.81 Encounter for therapeutic drug level monitoring (principal); Z79.01 Long term (current) use of anticoagulants; I67.6 Nonpyogenic thrombosis of intracranial venous system
CPT/HCPCS: 36415; 85610

== ENCOUNTER 2017-10-17 15:59 | Outpatient (CLI) ==
[2017-08-01 12:02] VITALS: BMI 35.9
== END 2017-10-17 16:00 | disposition home or self-care (01) ==
LOC: FCC-LAB 15:59
PROVIDERS: ATTEND Nurse Practitioner Family
DX: G43.919 Migraine, unspecified, intractable, without status migrainosus (principal); Z86.718 Personal history of other venous thrombosis and embolism
CPT/HCPCS: 36415; 80053; 85025; 85379; 85610

== ENCOUNTER 2017-10-18 09:33 | Outpatient (CLI) ==
[2017-08-01 12:02] VITALS: BMI 35.9
--- NOTE | 2017-10-18 12:42 | CT ---
EXAM: CT Head with and without contrast. HISTORY: Headache. Previous left-sided intracranial thrombus. COMPARISON: 03/02/2014. TECHNIQUE: Multiple axial images of the brain were obtained from the skull base through the vertex p rior to and following intravenous administration of 75 mL of Omnipaque 350, low osmolar. Multiplanar reformats were provided. FINDINGS: There is no intracranial hemorrhage or extraaxial collection. The garcía-white differentiat ion is maintained without evidence for acute large vascular territory infarction. The cortical sulci and basal cisterns are well visualized. No areas of abnormal enhancement are identified. There is no hydrocephalus, mass effect, or midline shift. The paranasal sinuses and mastoid air cells are grady ar. The calvarium is intact. Since the prior study, there has been no significant interval change. IMPRESSION: No acute intracranial abnormality.
== END 2017-10-18 09:34 | disposition home or self-care (01) ==
LOC: RAD 09:33
PROVIDERS: ATTEND Nurse Practitioner Family
DX: R79.89 Other specified abnormal findings of blood chemistry (principal); R51 Headache; G08 Intracranial and intraspinal phlebitis and thrombophlebitis

== ENCOUNTER 2018-07-05 11:12 | Outpatient (CLI) ==
[2017-08-01 12:02] VITALS: BMI 35.9
== END 2018-07-05 11:13 | disposition home or self-care (01) ==
LOC: RHC-LAB 11:12
PROVIDERS: ATTEND Nurse Practitioner Family
DX: I10 Essential (primary) hypertension (principal); F32.9 Major depressive disorder, single episode, unspecified
CPT/HCPCS: 36415; 80053; 80061; 84443; 85025